=== PATIENT | male | born 1960 | race Caucasian/White ===

== ENCOUNTER → 2022-03-17 09:00 | Outpatient (BNVA) | payer SELFPAY | PROVIDERS: PCP Internal Medicine; Visit Provider Physician Assistant | DX: Z02.79 Encounter for issue of other medical certificate (principal) ==

== ENCOUNTER 2022-05-12 15:56 | Inpatient (IN) | payer OTHER, SELFPAY ==
--- NOTE | ~2022-05-12 | CT_ITS ---
EXAMINATION: CT ABDOMEN AND PELVIS WITHOUT CONTRAST CLINICAL INFORMATION: Abdominal pain, weight loss COMPARISON: 04/07/2013 TECHNIQUE: Multidetector volumetric imaging was performed from the superior aspect of the liver through the pubic symphysis. Sagittal and coronal reformatted images were obtained on the technologist's workstation. This CT examination was performed using dose optimization techniques as appropriate, variously including the following: *Automated exposure control *Adjustment of mA and/or kV according to patient size (this includes techniques or standardized protocols for targeted exams where dose is matched to indication/reason for exam; i.e. extremities or head) *Use of iterative reconstruction technique DLP: 727 mGy-cm FINDINGS: LUNG BASES: The visualized lung bases are unremarkable. LIVER, GALLBLADDER, AND BILIARY TREE: The liver is normal in size, shape, and attenuation. No focal hepatic lesion or biliary ductal dilatation is present. Proximal gallstone is present. PANCREAS: Unremarkable. SPLEEN: Unremarkable. ADRENAL GLANDS: Unremarkable. KIDNEYS AND URETERS: No hydronephrosis or obstructing calculus. A few scattered hypoattenuating lesions are present in the kidneys most consistent with cysts measuring up to 2.7 cm and the left upper pole; no follow-up recommended. A couple small hyperdense right renal lesions favor hemorrhagic or proteinaceous cysts. A few punctate renal calculi are noted bilaterally. Nonspecific bilateral perinephric stranding. BLADDER: Unremarkable. GASTROINTESTINAL TRACT: No evidence of bowel obstruction or significant wall thickening. The appendix is unremarkable. No free fluid or free air is seen. ABDOMINAL WALL: Fat-containing umbilical hernia. Bilateral fat-containing inguinal hernias are also noted. LYMPH NODES: Normal. VASCULAR: Scattered atherosclerotic calcifications are present. PELVIC VISCERA: The prostate gland is enlarged, measuring 5.3 cm in transverse diameter. OSSEOUS STRUCTURES: Mild degenerative endplate changes are present in the spine. CT/CT abdomen pelvis wo con IMPRESSION: No acute findings identified in the abdomen/pelvis. Cholelithiasis.
--- NOTE | ~2022-05-12 | US_ITS ---
EXAMINATION: US ABDOMEN LIMITED CLINICAL INFORMATION: Cholecystitis. COMPARISON: Abdominal ultrasound 01/05/2010. CT scan abdomen pelvis 03/02/2010, 04/07/2013 TECHNIQUE: Real-time imaging of the right upper quadrant abdominal viscera. Code Doppler exam used. FINDINGS: PANCREAS: Obscured by bowel gas. LIVER: Mild diffuse increased echogenicity of liver parenchyma suggesting fatty change. The liver is normal in size. The liver contour is normal. No focal hepatic lesion. There is no intrahepatic biliary duct dilatation seen. GALLBLADDER: Gallstones present in the gallbladder. There is a stent which is intact. Neck measuring about 1.5 cm. Gallbladder wall is slightly thickened measuring 0.4 cm. There is trace pericholecystic fluid. Positive ultrasound Timmons's sign. Findings concerning for acute cholecystitis. HIDA scan may be helpful for further assessment. COMMON BILE DUCT: Normal in caliber measuring 0.6 cm in diameter. RIGHT KIDNEY: There is a nonobstructive 9 mm stone at the midpole. There is no hydronephrosis. The midpole cortex there is a 1.5 cm anechoic cyst, Bosniak 1. At the lower pole cortex there is a 2.1 cm thinly septated cyst, Bosniak 2 cyst. This is stable since ultrasound of 01/05/2010. There is an adjacent 1.5 cm simple cysts, Bosniak 1, at the lower pole. No further follow-up imaging recommended. No solid renal mass. The kidney measures 15.0 cm in maximum dimension. FREE FLUID: None. US/US abdomen limited IMPRESSION: 1. Cholelithiasis. Gallbladder wall thickening and trace pericholecystic fluid with positive ultrasound Timmons's sign raising concern for an acute cholecystitis. HIDA scan may be helpful for further assessment. 2. Increased echogenicity of liver parenchyma consistent with fatty change.
--- NOTE | ~2022-05-12 | NM_ITS ---
BILIARY TRACT IMAGING STUDY CLINICAL INDICATION: Epigastric pain, question acute cholecystitis. PROCEDURE: Scintillation camera images were obtained over the abdomen for an observation of 60 minutes following the intravenous administration of 5 millicuries technetium 99m Mebrofenin. COMPARISON: No previous biliary scan is available for comparison. Abdominal ultrasound dated 05/12/[address] scan of the abdomen and pelvis dated 05/13/2022 are available for comparison.. FINDINGS: There is good concentration of activity in the liver by 5 minutes post injection. Biliary activity is well visualized by 10 minutes, and there is good visualization of small bowel activity by 30 minutes. The gallbladder is well visualized by 25 minutes. Some biliary reflux into the stomach is noted, nonspecific finding. NM/NM hepatobiliary wo pharm IMPRESSION: Normal biliary scan. Visualization of the gallbladder is evidence of a patent cystic duct and strong evidence against the diagnosis of acute cholecystitis. The common bile duct is patent. Liver function appears normal.
[2022-05-12 16:00] VITALS: BP 179/87; PULSE 83; RESP 18; TEMP 37; O2SAT 96; BMI 30.2
--- NOTE | 2022-05-12 16:09 | ECG_ITS ---
Test Reason : cp Blood Pressure : / mmHG Vent. Rate : 086 BPM Atrial Rate : 086 BPM P-R Int : 178 ms QRS Dur : 084 ms QT Int : 366 ms P-R-T Axes : 065 -40 045 degrees QTc Int : 437 ms Normal sinus rhythm Left axis deviation Possible Inferior infarct , age undetermined Abnormal ECG No previous ECGs available Referred By: Generic ED Physician Electronically Signed By:BELLA WITT MD
[2022-05-12 16:30] LABS: Hematocrit 43.1 % (42.0-52.0); Hemoglobin 14.6 g/dl (14.0-18.0); Mean Corpuscular HGB Conc 33.9 g/dl (31.0-36.0); Mean Corpuscular Hemoglobin 29.4 pg (27.0-33.0); Mean Corpuscular Volume 86.7 fL (80.0-98.0); Mean Platelet Volume 11.2 fL (9.4-12.4); Platelet Count 219 X10*3/uL (160-400); Red Blood Count 4.97 X10*6/uL (4.60-5.80); Red Cell Distribution Width 13.2 % (11.0-16.0); White Blood Count 12.7 X10*3/uL (4.8-10.8)
[2022-05-12 16:38] LABS: Anion Gap 15 (12-20); Blood Urea Nitrogen 13 mg/dL (9-16); Calcium 9.7 mg/dL (8.4-10.2); Carbon Dioxide 28 mmol/L (22-29); Chloride 102 mmol/L (96-108); Creatinine Clr Calc Pharmacy 84.8; Estimated Glomerular Filt Rate > 60; Glucose Random 348 mg/dL (60-115); Potassium 4.4 mmol/L (3.3-5.1); Sodium 141 mmol/L (135-145)
[2022-05-12 16:46] LABS: B Type Natriuretic Peptide 21 pg/mL (<100); Troponin-I High Sensitivity < 3.5 ng/L (<3.5-35.0)
--- NOTE | 2022-05-12 22:14 | ED.CHESTPAIN ---
HPI - Chest Pain General Chief Complaint: Chest Pain Stated Complaint: chest and abd pain Time Seen by Provider: 05/12/22 22:04 Source: patient Mode of arrival: ambulatory Limitations: no limitations History of Present Illness HPI narrative: THIS IS A 61 YEARS OLD MALE REFERRED BY THE URGENT CARE BECAUSE OF CHEST PAIN. PATIENT STATES THAT PAIN STARTED ON MONDAY PAIN IS LOCALIZED MORE IN THE EPIGASTRIUM RADIATED TO THE BACK. DENIES ANY FEVER CHILLS. PATIENT HAS HISTORY OF TYPE 2 DIABETES MD complaint: chest pain Onset (ago): day(s) (5) Timing of current episode: constant Prior episodes: No Onset: during rest Pain location: substernal and epigastric Pain radiation: none Quality: aching Relieving factors: nothing Exacerbating factors: nothing Context: recent illness Associated symptoms: nausea Risk Factors Coronary artery disease risk factors: diabetes Related Data Home Medications Medication Instructions Recorded Confirmed aspirin 81 mg tablet 81 mg PO DAILY 05/12/22 05/12/22 atenolol 50 mg tablet 1 tab PO DAILY 05/12/22 05/12/22 atorvastatin 40 mg tablet 1 tab PO DAILY 05/12/22 05/12/22 dulaglutide 1.5 mg/0.5 mL 0.5 ml subcut QWEEK 05/12/22 05/12/22 subcutaneous pen injector (Trulicity) fenofibrate 160 mg tablet 1 tab PO DAILY 05/12/22 05/12/22 glyburide 5 mg tablet 2 tab PO BID 05/12/22 05/12/22 lisinopril 20 mg tablet 1 tab PO DAILY 05/12/22 05/12/22 metformin 1,000 mg tablet 1 tab PO BID 05/12/22 05/12/22 Allergies Allergy/AdvReac Type Severity Reaction Status Date / Time No Known Allergies Allergy Unverified 07/16/20 14:43 Review of Systems Review of Systems: Yes all other systems are reviewed and are negative Constitutional: Constitutional: Reports no additional constitutional complaints Eyes: Eyes: Reports no additional eye complaints Respiratory: Respiratory: Reports no additional respiratory complaints Gastrointestinal: Gastrointestinal: Reports abdominal pain Neurologic: Reports system reviewed and no additional complaints, except as documented [facility] Past Medical History [facility] Narrative: DM Medical History (Updated 05/12/22 @ 23:46 by Nghia Valente MD) Diabetes HLD (hyperlipidemia) HTN (hypertension) Social History Social History Advance Directives: No Advance Directives Information Provided: No Physical Exam Vital Signs: Vital Signs: Last Vital Signs Temp 98.6 F 05/12/22 16:00 Pulse 74 05/12/22 23:29 Resp 15 05/12/22 23:29 BP 137/75 05/12/22 23:29 Pulse Ox 97 05/12/22 23:29 O2 Del Method 05/12/22 23:29 BMI result Body Mass Index 30.2 Const: General: cooperative Nutritional Appearance: well nourished Orientation/consciousness: patient oriented x3 Limitations: no limitations HEENT: Head: Yes normal to inspection and Yes No palpable skull fracture present General nose exam: Normal external nose present Face and sinus: Yes normal facial exam Mouth: Normal oral and palatal mucosa present Neck: Neck: Yes full ROM and Yes no lymphadenopathy Chest: Chest palpation & inspection: normal inspection of the chest Resp: Effort & Inspection: normal respiratory effort Auscultation: clear to auscultation bilaterally Cardio: Jugular venous distension: no JVD Rate: regular rate Rhythm: regular rhythm GI: Inspection: Yes normal to inspection Palpation (GI): Soft to palpation Percussion: Yes normal to percussion Skin: General skin exam: no rashes or lesions noted, elasticity normal and turgor normal Neuro: General: patient oriented x3 Course Reevaluation(s) Reevaluation #1: I spoke with surgery Dr Irizarry he reccomend admission to medicine because elevated lipase (gallstones pancreatitis) Time: 23:57 Reevaluation #2: Feeling better Time: 23:58 MDM - Chest Pain Lab Data Result diagrams: 05/12/22 16:12 05/12/22 16:12 Labs: Lab Results 05/12/22 05/12/22 05/12/22 Range/Units 16:12 16:12 16:12 WBC 12.7 H (4.8-10.8) X10*3/uL RBC 4.97 (4.60-5.80) X10*6/uL Hgb 14.6 (14.0-18.0) g/dl Hct 43.1 (42.0-52.0) % MCV 86.7 (80.0-98.0) fL MCH 29.4 (27.0-33.0) pg MCHC 33.9 (31.0-36.0) g/dl RDW 13.2 (11.0-16.0) % Plt Count 219 (160-400) X10*3/uL MPV 11.2 (9.4-12.4) fL Absolute Nucleated RBC 0.000 (0.0-0.012) X10*3/uL Nucleated RBC % (auto) 0.0 (0.0-0.2) /100WBC Sodium 141 (135-145) mmol/L Potassium 4.4 (3.3-5.1) mmol/L Chloride 102 (96-108) mmol/L Carbon Dioxide 28 (22-29) mmol/L Anion Gap 15 (12-20) BUN 13 (9-16) mg/dL Creatinine 1.03 (0.5-1.4) mg/dL Estim Creat Clear Calc 84.8 Estimated GFR > 60 POC Glucose (60-115) mg/dL Random Glucose 348 H (60-115) mg/dL Calcium 9.7 (8.4-10.2) mg/dL Total Bilirubin 1.2 H (0.0-1.0) mg/dL Direct Bilirubin 0.5 (0.0-0.5) mg/dL AST 12 (5-37) U/L ALT 14 (0-40) U/L Alkaline Phosphatase 61 (39-117) U/L Troponin I High Sens < 3.5 (<3.5-35.0) ng/L B-Natriuretic Peptide 21 (<100) pg/mL Total Protein 6.6 (6.5-8.0) g/dL Albumin 4.4 (3.5-5.0) g/dL Lipase (8-78) U/L 05/12/22 05/12/22 05/12/22 Range/Units 22:31 22:31 22:33 WBC (4.8-10.8) X10*3/uL RBC (4.60-5.80) X10*6/uL Hgb (14.0-18.0) g/dl Hct (42.0-52.0) % MCV (80.0-98.0) fL MCH (27.0-33.0) pg MCHC (31.0-36.0) g/dl RDW (11.0-16.0) % Plt Count (160-400) X10*3/uL MPV (9.4-12.4) fL Absolute Nucleated RBC (0.0-0.012) X10*3/uL Nucleated RBC % (auto) (0.0-0.2) /100WBC Sodium (135-145) mmol/L Potassium (3.3-5.1) mmol/L Chloride (96-108) mmol/L Carbon Dioxide (22-29) mmol/L Anion Gap (12-20) BUN (9-16) mg/dL Creatinine (0.5-1.4) mg/dL Estim Creat Clear Calc Estimated GFR POC Glucose 336 H (60-115) mg/dL Random Glucose (60-115) mg/dL Calcium (8.4-10.2) mg/dL Total Bilirubin (0.0-1.0) mg/dL Direct Bilirubin (0.0-0.5) mg/dL AST (5-37) U/L ALT (0-40) U/L Alkaline Phosphatase (39-117) U/L Troponin I High Sens < 3.5 (<3.5-35.0) ng/L B-Natriuretic Peptide (<100) pg/mL Total Protein (6.5-8.0) g/dL Albumin (3.5-5.0) g/dL Lipase 287 H (8-78) U/L ECG Data ECG #1: Pacemaker model: EKG SHOWS NORMAL SINUS RHYTHM RATE [address]-T CHANGES Discharge Plan Discharge Clinical Impression: Gallstones, Acute gallstone pancreatitis Patient Disposition: Admitted As Inpatient
[2022-05-12 22:37] LABS: Glucose, Whole Blood 336 mg/dL (60-115)
[2022-05-12] MEDS: Ketorolac Tromethamine 30 MG/ML VIAL IVPUSH (22:43)
[2022-05-12 22:53] LABS: Lipase 287 U/L (8-78)
[2022-05-12 22:56] LABS: Troponin-I High Sensitivity < 3.5 ng/L (<3.5-35.0)
[2022-05-12 23:25] VITALS: RESP 15
[2022-05-12] MEDS: HYDROmorphone HCl 0.5 MG/0.5 ML SYRINGE IVPUSH (23:25)
[2022-05-12 23:29] VITALS: BP 137/75; PULSE 74; PULSE 79; RESP 15; O2SAT 97
[2022-05-12] MEDS: 0.9 % Sodium Chloride 1,000 ML 999 ML IVCONT (23:36)
[2022-05-12] MEDS: Piperacillin Sodium/Tazobactam 3.375 GM in 0.9 % Sodium Chloride 50 ML IV (23:43)
[2022-05-12 23:53] LABS: Alanine Aminotransferase 14 U/L (0-40); Albumin Level 4.4 g/dL (3.5-5.0); Alkaline Phosphatase 61 U/L (39-117); Aspartate Amino Transferase 12 U/L (5-37); Bilirubin Direct 0.5 mg/dL (0.0-0.5); Bilirubin Total 1.2 mg/dL (0.0-1.0); Total Protein 6.6 g/dL (6.5-8.0)
[2022-05-13] VITALS (8 sets, daily range): BP systolic 117–162; BP diastolic 55–74; PULSE 60–69; RESP 10–18; TEMP 36.1–37.1; O2SAT 95–99
--- NOTE | 2022-05-13 01:05 | P.HPHOSP_ITS ---
History of Present Illness Date of Service: 05/13/22 Chief Complaint: abd pain/chest pain 61-year-old male with past medical history of hyperlipidemia, diabetes, hypertension presents to the hospital with for substernal/epigastric abdominal pain. Patient reports his symptoms started 1 week ago, the pain is constant, radiating to the back, varying in severity, reaching 10/10 at times, resolving spontaneously, he reports that the pain with come in waves. He almost feels like a squeezing right upper quadrant pain at times as well. He reports unintentional 40 lb weight loss in 4 months. He has nausea with no vomiting, has had diarrhea because he has been taking milk of magnesia thinking that would help. He has had low oral intake as a result. Denies any fever or chills, no palpitation, headache, no numbness weakness or tingling. No urinary symptoms and no lower extremity edema. Patient reports that he had a colonoscopy about a year ago that showed adenoma any was told that that was falling into pea, skipping 5 year. On arrival to the ED hemodynamically stable with no significant abnormal vitals Labs are significant for WBC count 12.7, lipase of 287, LFTs normal. Abdominal ultrasound showed cholelithiasis, abdominal pelvic CT showed cholelithiasis with no evidence of acute pancreatitis Given that patient needs to have a criteria for acute pancreatitis he will be admitted for further management Review of Systems Review of Systems: Yes all other systems are reviewed and are negative FOR[facility], [facility] Medical History Diabetes HLD (hyperlipidemia) HTN (hypertension) Family History (Updated 05/13/22 @ 06:42 by Ciaran Hinton MD) Mother Lung cancer Father Colon cancer Pertinent family history: Father had colon cancer at the age of 80 Social History Advance Directives: No Advance Directives Information Provided: No Meds Allergies Allergy/AdvReac Type Severity Reaction Status Date / Time No Known Allergies Allergy Unverified 07/16/20 14:43 Active Medications: Current Medications Acetaminophen (Acetaminophen 325 Mg Tablet) 650 mg PO Q6H PRN PRN Reason: Pain, Mild (Pain Scale 1-3) Hydromorphone HCl (Hydromorphone Hcl 1 Mg/Ml Syringe) 0.5 mg IVPUSH Q4H PRN; Pr otocol PRN Reason: Pain, Severe (Pain Scale 7-10) Ondansetron HCl (Ondansetron Hcl 4 Mg/2 Ml Vial) 4 mg IVPUSH Q8H PRN PRN Reason: Nausea and Vomiting Sodium Chloride (0.9 % Sodium Chloride Flush 3 Ml Syringe) 3 ml IVFLUSH [facility] Home Medications Medication Instructions Recorded Confirmed Last Taken Type aspirin 81 mg tablet 81 mg PO DAILY 05/12/22 05/12/22 Unknown History atenolol 50 mg tablet 1 tab PO DAILY 05/12/22 05/12/22 Unknown History atorvastatin 40 mg tablet 1 tab PO DAILY 05/12/22 05/12/22 Unknown History dulaglutide 1.5 mg/0.5 mL 0.5 ml subcut QWEEK 05/12/22 05/12/22 Unknown History subcutaneous pen injector (Trulicity) fenofibrate 160 mg tablet 1 tab PO DAILY 05/12/22 05/12/22 Unknown History glyburide 5 mg tablet 2 tab PO BID 05/12/22 05/12/22 Unknown History lisinopril 20 mg tablet 1 tab PO DAILY 05/12/22 05/12/22 Unknown History metformin 1,000 mg tablet 1 tab PO BID 05/12/22 05/12/22 Unknown History Physical Exam Vital Signs and Narrative: Vital Signs: Last Vital Signs Temp 98.6 F 05/12/22 16:00 Pulse 69 05/13/22 00:42 Resp 16 05/13/22 00:42 BP 137/75 05/12/22 23:29 Pulse Ox 96 05/13/22 00:42 O2 Del Method 05/13/22 00:42 BMI result Body Mass Index 30.2 Const: General: cooperative and no acute distress Orientation/consciousness: patient oriented x3 Eyes: General: appearance normal, both eyes and all related structures Resp: Effort & Inspection: normal respiratory effort Auscultation: clear to auscultation bilaterally Cardio: Rate: regular rate Rhythm: regular rhythm GI: Other: Epigastric tenderness, no rebound or guarding Palpation (GI): Soft to palpation Auscultation: normal bowel sounds Skin: General skin exam: no rashes or lesions noted Neuro: General: patient oriented x3 Cognition (Neuro): normal cognition Extrem: General: Yes normal to inspection and Yes no pedal edema Results Labs CBC and Chem 7: 05/12/22 16:12 05/12/22 16:12 Labs: Laboratory Results - last 24 hr 05/12/22 05/12/22 05/12/22 16:12 16:12 16:12 MCV 86.7 MCH 29.4 MCHC 33.9 RDW 13.2 Plt Count 219 MPV 11.2 Absolute Nucleated RBC 0.000 Nucleated RBC % (auto) 0.0 Anion Gap 15 Estim Creat Clear Calc 84.8 Estimated GFR > 60 POC Glucose Random Glucose 348 H Calcium 9.7 Total Bilirubin 1.2 H Direct Bilirubin 0.5 AST 12 ALT 14 Alkaline Phosphatase 61 Troponin I High Sens < 3.5 B-Natriuretic Peptide 21 Total Protein 6.6 Albumin 4.4 Lipase 05/12/22 05/12/22 05/12/22 22:31 22:31 22:33 MCV MCH MCHC RDW Plt Count MPV Absolute Nucleated RBC Nucleated RBC % (auto) Anion Gap Estim Creat Clear Calc Estimated GFR POC Glucose 336 H Random Glucose Calcium Total Bilirubin Direct Bilirubin AST ALT Alkaline Phosphatase Troponin I High Sens < 3.5 B-Natriuretic Peptide Total Protein Albumin Lipase 287 H Imaging Radiologist's Impressions: Impressions Abdomen Ultrasound 05/12/22 22:55 IMPRESSION: 1. Cholelithiasis. Gallbladder wall thickening and trace pericholecystic fluid with positive ultrasound Timmons's sign raising concern for an acute cholecystitis. HIDA scan may be helpful for further assessment. 2. Increased echogenicity of liver parenchyma consistent with fatty change. Assessment and Plan (1) Gallstones: Status: Acute (2) Acute gallstone pancreatitis: Status: Acute (3) Weight loss: Status: Acute Plan This is a 61-year-old male with past medical history of hypertension, hyperlipidemia, as well as diabetes presents to the hospital with abdominal pain # Epigastric abdominal pain - likely secondary to acute pancreatitis - patient has elevated lipase as well as epigastric pain radiating to the back characteristic of acute pancreatitis meeting 2/3 criteria for acute pancreatitis - likely cause gallstone pancreatitis - will consult GI for possible MRCP - IV fluids - pain control # significant weight loss - reports a 40 lb weight loss that was unintentional for the past 4 months - no evidence of acute abnormality on abdominal CT - reports colonoscopy about a year ago with adenoma and 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
[2022-05-13] MEDS: Lactated Ringers 1,000 ML 200 ML IVCONT ×5 (01:55→22:02)
[2022-05-13 04:28] LABS: COVID-19 Test Negative (Negative)
[2022-05-13 06:46] LABS: MANUAL DIFF FLAG NO
[2022-05-13 06:50] LABS: Basophils Percent Auto 0.4 % (0-2); Eosinophils Absolute Auto 0.4 X10*3/uL (0.0-0.4); Eosinophils Percent Auto 4.6 % (0-4); Hematocrit 39.2 % (42.0-52.0); Hemoglobin 13.2 g/dl (14.0-18.0); Imm Gran Abs Auto 0.07 X10*3/uL (0.00-0.03); Imm Gran Pct Auto 0.8 % (0.0-0.4); Lymphocytes Absolute Auto 2.4 X10*3/uL (1.2-4.9); Lymphocytes Percent Auto 26.7 % (20-40); Mean Corpuscular HGB Conc 33.7 g/dl (31.0-36.0); Mean Corpuscular Hemoglobin 29.5 pg (27.0-33.0); Mean Corpuscular Volume 87.7 fL (80.0-98.0); Mean Platelet Volume 11.3 fL (9.4-12.4); Monocytes Absolute Auto 0.7 X10*3/uL (0.1-1.2); Monocytes Percent Auto 7.4 % (2-11); Neutrophils Absolute Auto 5.4 x10*3/uL (2.0-8.3); Neutrophils Percent Auto 60.1 % (45-73); Platelet Count 173 X10*3/uL (160-400); Red Blood Count 4.47 X10*6/uL (4.60-5.80); Red Cell Distribution Width 13.3 % (11.0-16.0)
[2022-05-13 07:25] LABS: Anion Gap 9 (12-20); Blood Urea Nitrogen 12 mg/dL (9-16); Calcium 8.8 mg/dL (8.4-10.2); Carbon Dioxide 32 mmol/L (22-29); Chloride 107 mmol/L (96-108); Creatinine Clr Calc Pharmacy 106.5; Estimated Glomerular Filt Rate > 60; Glucose Random 228 mg/dL (60-115); Potassium 4.2 mmol/L (3.3-5.1); Sodium 144 mmol/L (135-145); Triglycerides 113 mg/dL
--- NOTE | 2022-05-13 07:25 | PM.GICN ---
History of Present Illness Data of Consult Service Date: 05/13/22 Requesting physician: Ciaran Hinton Primary Care Provider: Unknown Physician HPI Reason for consult: pancreatitis 61-year-old male with past medical history of hyperlipidemia, diabetes, hypertension who I am seeing for assessment of pancreatitis He initially presented with constant 10/10 epigastrc pain with radiaiton into the back for last 1-2 days, coming in waves of varying intensity. No relieving or exacerbating factors, never had before, associated with nausea, no vomiting. Denies any fever or chills, no palpitation, headache, no numbness weakness or tingling.? No urinary symptoms and no lower extremity edema.? He reports unintentional 40 lb weight loss in 4 months but blames this on matrimonial issues with and not eating right. He does have early satiety. Labs are significant for WBC count 12.7, lipase of 287, LFTs normal.? Abdominal ultrasound showed cholelithiasis, abdominal pelvic CT showed cholelithiasis with no evidence of acute pancreatitis Review of Systems Review of Systems: Constitutional : No Weight loss, No Fever, No Chills ENT/Mouth : No sore throat, No Rhinorrhea Eyes: No Swelling, No Redness Cardiovascular : No Chest Pain, No SOB, No Edema Respiratory : No Cough, No Sputum, No Wheezing Gastrointestinal : see HPI Genitourinary : NO Dysuria, No Urinary Frequency, No Hematuria, No Urgency Musculoskeletal : No joint pain, No Myalgias, No Joint Swelling Skin : No Skin Lesions, No rash Neuro : No Weakness, No Numbness, No Dizziness, No Headache Psych : No Anxiety/Panic, No Depression Heme/Lymph: No Bruising, No Lymphadenopathy Endocrine : No Polyuria, No Polydipsia All other systems reviewed and are negative. [facility] Past Medical History Medical History Diabetes HLD (hyperlipidemia) HTN (hypertension) Family History Family History (Updated 05/13/22 @ 06:42 by Ciaran Hinton MD) Mother Lung cancer Father Colon cancer Social History Social History Advance Directives: No Advance Directives Information Provided: No Meds Allergies Allergy/AdvReac Type Severity Reaction Status Date / Time No Known Allergies Allergy Unverified 07/16/20 14:43 Active Medications: Current Medications Acetaminophen (Acetaminophen 325 Mg Tablet) 650 mg PO Q6H PRN PRN Reason: Pain, Mild (Pain Scale 1-3) Atenolol (Atenolol 50 Mg Tablet) 50 mg PO DAILY [facility]; Protocol Atorvastatin Calcium (Atorvastatin Calcium 40 Mg Tablet) 40 mg PO DAILY [facility] Dextrose (Dextrose 50 % 25 Gm/50 Ml Syringe) 25 gm IVPUSH Q15M PRN; Protocol PRN Reason: per Hypoglycemia Standing Ord. Fenofibrate (Fenofibrate 160 Mg Tablet) 160 mg PO DAILY [facility] Glucose (Glucose Gel 15 Gm Gel..Gram.) 15 gm PO Q15M PRN; Protocol PRN Reason: per Hypoglycemia Standing Ord. Glyburide (Glyburide 5 Mg Tablet) 10 mg PO BID [facility] Hydromorphone HCl (Hydromorphone Hcl 1 Mg/Ml Syringe) 0.5 mg IVPUSH Q4H PRN; Protocol PRN Reason: Pain, Severe (Pain Scale 7-10) Lactated Ringer's (Lr) 1,000 mls @ 200 mls/hr IVCONT .Q5H [facility] Last Admin: 05/13/22 06:52 Dose: 200 mls/hr Insulin Human Lispro (Insulin Lispro 100 Unit/Ml 3 Ml Vial) 0.1 - 10 unit SUBCUT QIDACHS [facility]; Protocol Lisinopril (Lisinopril 20 Mg Tablet) 20 mg PO DAILY [facility]; Protocol Ondansetron HCl (Ondansetron Hcl 4 Mg/2 Ml Vial) 4 mg IVPUSH Q8H PRN PRN Reason: Nausea and Vomiting Sodium Chloride (0.9 % Sodium Chloride Flush 3 Ml Syringe) 3 ml IVFLUSH QSHIFT [facility] Home Medications Medication Instructions Recorded Confirmed Last Taken Type aspirin 81 mg tablet 81 mg PO DAILY 05/12/22 05/12/22 Unknown History atenolol 50 mg tablet 1 tab PO DAILY 05/12/22 05/12/22 Unknown History atorvastatin 40 mg tablet 1 tab PO DAILY 05/12/22 05/12/22 Unknown History dulaglutide 1.5 mg/0.5 mL 0.5 ml subcut QWEEK 05/12/22 05/12/22 Unknown History [facility] fenofibrate 160 mg tablet 1 tab PO DAILY 05/12/22 05/12/22 Unknown History glyburide 5 mg tablet 2 tab PO BID 05/12/22 05/12/22 Unknown History lisinopril 20 mg tablet 1 tab PO DAILY 05/12/22 05/12/22 Unknown History metformin 1,000 mg tablet 1 tab PO BID 05/12/22 05/12/22 Unknown History Physical Exam Vital Signs: Vital Signs: Last Vital Signs Temp 97.6 F 05/13/22 07:20 Pulse 63 05/13/22 07:20 Resp 15 05/13/22 07:20 BP 162/70 H 05/13/22 07:20 Pulse Ox 98 05/13/22 07:20 O2 Del Method 05/13/22 07:20 BMI result Body Mass Index 30.2 EXAM: GENERAL: The patient is obese VITAL SIGNS:see workflow HEENT: Nonicteric sclerae, PERRLA, EOMI. Oropharynx clear. Moist mucous membranes. Conjunctivae appear well perfused. No thyroid mass. CHEST: Chest wall is nontender. HEART: Regular rate and rhythm without murmurs. LUNGS: Clear to auscultation bilaterally. ABDOMEN: Soft, positive bowel sounds, tender epigastrium and RUQ, no organomegaly.no flank tenderness, moderate sized umbilical hernia noted SKIN: No rash, no excessive bruising, petechiae, or purpura. NEUROLOGIC: Cranial nerves II-XII intact without motor/sensory deficit. Psych> nml affect Extrem: General: Yes normal to inspection Results Labs CBC & Chem 7: 05/13/22 06:20 05/13/22 06:20 Labs: Short CBC 05/12/22 05/13/22 Range/Units 16:12 06:20 WBC 12.7 H 9.0 (4.8-10.8) X10*3/uL Hgb 14.6 13.2 L (14.0-18.0) g/dl Hct 43.1 39.2 L (42.0-52.0) % Plt Count 219 173 (160-400) X10*3/uL BMP 05/12/22 05/13/22 16:12 06:20 Sodium 141 144 Potassium 4.4 4.2 Chloride 102 107 Carbon Dioxide 28 32 H BUN 13 12 Creatinine 1.03 0.82 Calcium 9.7 8.8 D Liver Function 07/14/22 Range/Units 16:12 Total Bilirubin 1.2 H (0.0-1.0) mg/dL Direct Bilirubin 0.5 (0.0-0.5) mg/dL AST 12 (5-37) U/L ALT 14 (0-40) U/L Alkaline Phosphatase 61 (39-117) U/L Albumin 4.4 (3.5-5.0) g/dL Imaging US - abdomen: Radiologist's impression: . Cholelithiasis. Gallbladder wall thickening and trace pericholecystic fluid with positive ultrasound Timmons's sign raising concern for an acute cholecystitis. HIDA scan may be helpful for further assessment. 2. Increased echogenicity of liver parenchyma consistent with fatty change. CT scan - abdomen: Attestation: I personally reviewed and interpreted this imaging study as follows: My impression: large gallstone impacted near neck of GB, mild atheromatous disease of blood vessels, renal cysts Assessment and Plan (1) Gallstones: Status: Acute (2) Acute gallstone pancreatitis: Status: Acute Plan 1/Abdominal pain with raised lipase and gallstones on imaging may have had mild pancreatitis, also possible early stage cholecystitis, no evidence of CBD obstruction 2/ weight loss, may be due to underlying marital stress, no concerning findings on CT, he had colonoscopy in recent past few years without any mass etc, does have early satiety though, may also be due to 1/ above PLAN: 1/ consider HIDA if ongoing concern for cholecystitis or if worsening sx and commence ABx 2/ if symptoms improve then can allow clears and advance diet 3/ surgical assessment 4/ may consider o/p EGD due to early satiety, may have gastroparesis from DM, or due to stress, check TSH 5/ if sx persist then MRI pancreas Procedures Date of Service Date of Service: 05/13/22
[2022-05-13 07:31] LABS: Estimated Average Glucose 166 mg/dL; Hemoglobin A1c % 7.4 %
--- NOTE | 2022-05-13 07:40 | PHA.MEDREC ---
Pharmacy Consult ? Medication Reconciliation Pharmacy has completed the medication reconciliation. Reviewed med rec nurse completed
--- NOTE | 2022-05-13 07:57 | PC.NURSE ---
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
[2022-05-13] MEDS: atenoloL 50 MG TABLET PO (08:01)
[2022-05-13] MEDS: HYDROmorphone HCl 1 MG/ML SYRINGE 0.5 MG IVPUSH ×3 (08:01→17:35)
[2022-05-13] MEDS: Atorvastatin Calcium 40 MG TABLET PO (08:02)
[2022-05-13] MEDS: lisinopriL 20 MG TABLET PO (08:02)
[2022-05-13 08:06] LABS: Glucose, Whole Blood 204 mg/dL (60-115)
--- NOTE | 2022-05-13 08:24 | P.CONGS_ITS ---
History of Present Illness Consult details Consult date: 05/13/22 Reason for consult: abdominal pain Requesting physician: Nghia Valente Narrative: A 61-year-old gentleman with a history of type 2 diabetes. He reports his last hemoglobin A1c was in the 7 range a couple months ago. He seen at the request of the emergency room team because of abdominal pain that is been going on for about a week. He denies any history of smoking or alcohol use but notes that he has had band-like upper abdominal pain for at least a week. It has been associated with both nausea and vomiting but no chest pain, difficulty breathing or shortness of breath. 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 He denies any new medication changes. He is noted to have a gallstone, leukocytosis and hyperlipasemia and I was asked to evaluate him for possible gallstone pancreatitis or acute cholecystitis given the conflicting data on the ultrasound, which shows gallbladder wall thickening and right upper quadrant tenderness and CT scan which showed no significant pathology. Patient notes he has little improved this morning. Review of Systems Review of Systems: Yes all other systems are reviewed and are negative Constitutional: Constitutional: Reports as per [facility] Past Medical History Medical History Diabetes HLD (hyperlipidemia) HTN (hypertension) Family History Family History (Updated 05/13/22 @ 06:42 by Ciaran Hinton MD) Mother Lung cancer Father Colon cancer Social History Social History Advance Directives: No Advance Directives Information Provided: No Meds Allergies Allergy/AdvReac Type Severity Reaction Status Date / Time No Known Allergies Allergy Unverified 07/16/20 14:43 Active Medications: Current Medications Acetaminophen (Acetaminophen 325 Mg Tablet) 650 mg PO Q6H PRN PRN Reason: Pain, Mild (Pain Scale 1-3) Atenolol (Atenolol 50 Mg Tablet) 50 mg PO DAILY [facility]; Protocol Last Admin: 05/13/22 08:01 Dose: 50 mg Atorvastatin Calcium (Atorvastatin Calcium 40 Mg Tablet) 40 mg PO DAILY [facility] Last Admin: 05/13/22 08:02 Dose: 40 mg Dextrose (Dextrose 50 % 25 Gm/50 Ml Syringe) 25 gm IVPUSH Q15M PRN; Protocol PRN Reason: per Hypoglycemia Standing Ord. Fenofibrate (Fenofibrate 160 Mg Tablet) 160 mg PO DAILY [facility] Glucose (Glucose Gel 15 Gm Gel..Gram.) 15 gm PO Q15M PRN; Protocol PRN Reason: per Hypoglycemia Standing Ord. Glyburide (Glyburide 5 Mg Tablet) 10 mg PO BID [facility] Hydromorphone HCl (Hydromorphone Hcl 1 Mg/Ml Syringe) 0.5 mg IVPUSH Q4H PRN; Protocol PRN Reason: Pain, Severe (Pain Scale 7-10) Last Admin: 05/13/22 08:01 Dose: 0.5 mg Lactated Ringer's (Lr) 1,000 mls @ 200 mls/hr IVCONT .Q5H [facility] Last Admin: 05/13/22 06:52 Dose: 200 mls/hr Insulin Human Lispro (Insulin Lispro 100 Unit/Ml 3 Ml Vial) 0.1 - 10 unit SUBCUT QIDACHS [facility]; Protocol Last Admin: 05/13/22 07:44 Dose: Not Given Lisinopril (Lisinopril 20 Mg Tablet) 20 mg PO DAILY [facility]; Protocol Last Admin: 05/13/22 08:02 Dose: 20 mg Ondansetron HCl (Ondansetron Hcl 4 Mg/2 Ml Vial) 4 mg IVPUSH Q8H PRN PRN Reason: Nausea and Vomiting Sodium Chloride (0.9 % Sodium Chloride Flush 3 Ml Syringe) 3 ml IVFLUSH QSHIFT [facility] Last Admin: 05/13/22 08:24 Dose: Not Given Home Medications Medication Instructions Recorded Confirmed Last Taken Type aspirin 81 mg tablet 81 mg PO DAILY 05/12/22 05/12/22 Unknown History atenolol 50 mg tablet 1 tab PO DAILY 05/12/22 05/12/22 Unknown History atorvastatin 40 mg tablet 1 tab PO DAILY 05/12/22 05/12/22 Unknown History dulaglutide 1.5 mg/0.5 mL 0.5 ml subcut QWEEK 05/12/22 05/12/22 Unknown History subcutaneous pen injector ([facility]) fenofibrate 160 mg tablet 1 tab PO DAILY 05/12/22 05/12/22 Unknown History glyburide 5 mg tablet 2 tab PO BID 05/12/22 05/12/22 Unknown History lisinopril 20 mg tablet 1 tab PO DAILY 05/12/22 05/12/22 Unknown History metformin 1,000 mg tablet 1 tab PO BID 05/12/22 05/12/22 Unknown History Physical Exam Vital Signs: Vital Signs: Last Vital Signs Temp 97.6 F 05/13/22 07:20 Pulse 63 05/13/22 07:20 Resp 15 05/13/22 07:20 BP 162/70 H 05/13/22 07:20 Pulse Ox 98 05/13/22 07:20 O2 Del Method 05/13/22 07:20 BMI result Body Mass Index 30.2 The patient is non-toxic & in good spirits NC/AT, PERRLA, EOMI Mood, affect & judgment all appear appropriate Sclera anicteric conjunctiva pink and moist Oropharynx is clear with no aphthous ulcers, Mallampati class 4, mucous membr anes moist Neck is supple with no masses, adenopathy or bruits Thyroid is nontender and free of dominant masses Heart is regular, normal S1-S2 no rubs or murmurs Lungs are clear and equal anteriorly with no audible wheezing, rubs or dullness to percussion No CVA tenderness present Abdomen is obese with a MODERATE REDUCIBLE, NONTENDER UMBILICAL HERNIA. The skin overlying the hernia is thinned. There is minimal epigastric and right upper quadrant discomfort but no rebound, rigidity, guarding, bruits. Rectal exam is deferred Skin has good turgor and is free of rashes Extremities free of cyanosis clubbing edema Results Labs Result diagrams: 05/13/22 06:20 05/13/22 06:20 Labs: Abnormal lab results 05/12/22 05/12/22 05/12/22 Range/Units 16:12 16:12 22:31 WBC 12.7 H (4.8-10.8) X10*3/uL RBC (4.60-5.80) X10*6/uL Hgb (14.0-18.0) g/dl Hct (42.0-52.0) % Immature Gran % (Auto) (0.0-0.4) % Eos % (Auto) (0-4) % Abs Immat Gran (auto) (0.00-0.03) X10*3/uL Carbon Dioxide (22-29) mmol/L Anion Gap (12-20) POC Glucose (60-115) mg/dL Random Glucose 348 H (60-115) mg/dL Total Bilirubin 1.2 H (0.0-1.0) mg/dL Lipase 287 H (8-78) U/L 05/12/22 05/13/22 05/13/22 Range/Units 22:33 06:20 06:20 WBC (4.8-10.8) X10*3/uL RBC 4.47 L (4.60-5.80) X10*6/uL Hgb 13.2 L (14.0-18.0) g/dl Hct 39.2 L (42.0-52.0) % Immature Gran % (Auto) 0.8 H (0.0-0.4) % Eos % (Auto) 4.6 H (0-4) % Abs Immat Gran (auto) 0.07 H (0.00-0.03) X10*3/uL Carbon Dioxide 32 H (22-29) mmol/L Anion Gap 9 L (12-20) POC Glucose 336 H (60-115) mg/dL Random Glucose 228 H (60-115) mg/dL Total Bilirubin (0.0-1.0) mg/dL Lipase (8-78) U/L 05/13/22 Range/Units 07:19 WBC (4.8-10.8) X10*3/uL RBC (4.60-5.80) X10*6/uL Hgb (14.0-18.0) g/dl Hct (42.0-52.0) % Immature Gran % (Auto) (0.0-0.4) % Eos % (Auto) (0-4) % Abs Immat Gran (auto) (0.00-0.03) X10*3/uL Carbon Dioxide (22-29) mmol/L Anion Gap (12-20) POC Glucose 204 H (60-115) mg/dL Random Glucose (60-115) mg/dL Total Bilirubin (0.0-1.0) mg/dL Lipase (8-78) U/L Short CBC 05/12/22 05/13/22 Range/Units 16:12 06:20 WBC 12.7 H 9.0 (4.8-10.8) X10*3/uL Hgb 14.6 13.2 L (14.0-18.0) g/dl Hct 43.1 39.2 L (42.0-52.0) % Plt Count 219 173 (160-400) X10*3/uL BMP 05/12/22 05/13/22 16:12 06:20 Sodium 141 144 Potassium 4.4 4.2 Chloride 102 107 Carbon Dioxide 28 32 H BUN 13 12 Creatinine 1.03 0.82 Calcium 9.7 8.8 D Liver Function 05/12/22 Range/Units 16:12 Total Bilirubin 1.2 H (0.0-1.0) mg/dL Direct Bilirubin 0.5 (0.0-0.5) mg/dL AST 12 (5-37) U/L ALT 14 (0-40) U/L Alkaline Phosphatase 61 (39-117) U/L Albumin 4.4 (3.5-5.0) g/dL All other labs normal. Imaging Chest x-ray: report reviewed Abdomen CT scan report/results: report reviewed and image reviewed CT scan - pelvis: report reviewed and image reviewed Abdominal ultrasound report/results: report reviewed and image reviewed Additional studies: I have ordered a HIDA scan to be done this morning. Addendum 12:52PM-- no evidence of acute cholecystitis on HIDA scan Assessment and Plan (1) Gallstones: Status: Acute (2) Acute gallstone pancreatitis: Status: Acute (3) Morbid (severe) obesity due to excess calories: Status: Acute (4) DMII (diabetes mellitus, type 2): Status: Acute Plan I have ordered a HIDA scan, and that is negative for acute cholecystitis. It is possible the patient had a small gallstones spit, however, he is currently improving. The patient is clinically improved and his symptoms do sound like biliary colic, but that would not explain is hyperlipasemia. Trend lipase. The patient's umbilical hernia readily reduces and is quiescent, however there are trophic skin changes. He should consider repair on an elective later visit. Please call me with any questions. I will continue to follow. I would not object to clear liquids with a planned discharge him and follow up as an outpatient unless another etiology for his pancreatitis is concerning. Procedures Date of Service Date of Service: 05/13/22
[2022-05-13] MEDS: glyBURIDE 5 MG TABLET 10 MG PO ×2 (08:51→21:59)
[2022-05-13] MEDS: Fenofibrate 160 MG TABLET PO (08:51)
--- NOTE | 2022-05-13 09:39 | P.CONGS_ITS ---
History of Present Illness Consult details Consult date: 05/13/22 Narrative: 61M admitted for epigastric pain. He describes pain on the epigastric area, right upper quadrant as well as the substernal area for over 1 week now. He describes this as episodic, and would sometimes be severe. He says this has not changed much over the week. He denies anusea or vomitting. He denies fever or chills at home He also says that has had significant weight loss almost 40 lbs in 4-5 months. Review of Systems Constitutional: Constitutional: Denies chills and Denies fever(s) Cardiovascular: Cardiovascular: Denies chest pain, Denies dyspnea and Denies dyspnea on exertion Respiratory: Respiratory: Denies cough, Denies dyspnea and Denies dyspnea on exertion Gastrointestinal: Gastrointestinal: Denies hematochezia and Denies change in bowel habits Genitourinary: Genitourinary: Denies hematuria and Denies difficulty urinating Musculoskeletal: Musculoskeletal: Denies back pain and Denies limited range of motion Neurologic: Denies focal weakness and Denies convulsions Psychiatric: Psychiatric: Denies depression and Denies mood swings [facility] Past Medical History Medical History Diabetes HLD (hyperlipidemia) HTN (hypertension) Family History Family History (Updated 05/13/22 @ 06:42 by Ciaran Hinton MD) Mother Lung cancer Father Colon cancer Social History Social History Advance Directives: No Advance Directives Information Provided: No Meds Allergies Allergy/AdvReac Type Severity Reaction Status Date / Time No Known Allergies Allergy Unverified 07/16/20 14:43 Active Medications: Current Medications Acetaminophen (Acetaminophen 325 Mg Tablet) 650 mg PO Q6H PRN PRN Reason: Pain, Mild (Pain Scale 1-3) Atenolol (Atenolol 50 Mg Tablet) 50 mg PO DAILY NATALIA; Protocol Last Admin: 05/13/22 08:01 Dose: 50 mg Atorvastatin Calcium (Atorvastatin Calcium 40 Mg Tablet) 40 mg PO DAILY NATALIA Last Admin: 05/13/22 08:02 Dose: 40 mg Dextrose (Dextrose 50 % 25 Gm/50 Ml Syringe) 25 gm IVPUSH Q15M PRN; Protocol PRN Reason: per Hypoglycemia Standing Ord. Fenofibrate (Fenofibrate 160 Mg Tablet) 160 mg PO DAILY [facility] Last Admin: 05/13/22 08:51 Dose: 160 mg Glucose (Glucose Gel 15 Gm Gel..Gram.) 15 gm PO Q15M PRN; Protocol PRN Reason: per Hypoglycemia Standing Ord. Glyburide (Glyburide 5 Mg Tablet) 10 mg PO BID [facility] Last Admin: 05/13/22 08:51 Dose: 10 mg Hydromorphone HCl (Hydromorphone Hcl 1 Mg/Ml Syringe) 0.5 mg IVPUSH Q4H PRN; Protocol PRN Reason: Pain, Severe (Pain Scale 7-10) Last Admin: 05/13/22 08:01 Dose: 0.5 mg Lactated Ringer's (Lr) 1,000 mls @ 200 mls/hr IVCONT .Q5H [facility] Last Admin: 05/13/22 06:52 Dose: 200 mls/hr Insulin Human Lispro (Insulin Lispro 100 Unit/Ml 3 Ml Vial) 0.1 - 10 unit SUBCUT QIDACHS [facility]; Protocol Last Admin: 05/13/22 07:44 Dose: Not Given Lisinopril (Lisinopril 20 Mg Tablet) 20 mg PO DAILY [facility]; Protocol Last Admin: 05/13/22 08:02 Dose: 20 mg Metformin HCl (Metformin Hcl 1,000 Mg Tablet) 1,000 mg PO BID [facility] Ondansetron HCl (Ondansetron Hcl 4 Mg/2 Ml Vial) 4 mg IVPUSH Q8H PRN PRN Reason: Nausea and Vomiting Sodium Chloride (0.9 % Sodium Chloride Flush 3 Ml Syringe) 3 ml IVFLUSH QSHIFT [facility] Last Admin: 05/13/22 08:24 Dose: Not Given Home Medications Medication Instructions Recorded Confirmed Last Taken Type aspirin 81 mg tablet 81 mg PO DAILY 05/12/22 05/12/22 Unknown History atenolol 50 mg tablet 1 tab PO DAILY 05/12/22 05/12/22 Unknown History atorvastatin 40 mg tablet 1 tab PO DAILY 05/12/22 05/12/22 Unknown History dulaglutide 1.5 mg/0.5 mL 0.5 ml subcut QWEEK 05/12/22 05/12/22 Unknown History subcutaneous pen injector ([facility]) fenofibrate 160 mg tablet 1 tab PO DAILY 05/12/22 05/12/22 Unknown History glyburide 5 mg tablet 2 tab PO BID 05/12/22 05/12/22 Unknown History lisinopril 20 mg tablet 1 tab PO DAILY 05/12/22 05/12/22 Unknown History metformin 1,000 mg tablet 1 tab PO BID 05/12/22 05/12/22 Unknown History Physical Exam Vital Signs: Vital Signs: Last Vital Signs Temp 97.6 F 05/13/22 07:20 Pulse 63 05/13/22 07:20 Resp 15 05/13/22 07:20 BP 162/70 H 05/13/22 07:20 Pulse Ox 98 05/13/22 07:20 O2 Del Method 05/13/22 07:20 BMI result Body Mass Index 30.2 Const: Other: not toxic looking General: comfortable and no acute distress Orientation/consciousness: patient oriented x3 Neck: Neck: Yes no lymphadenopathy Resp: Auscultation: clear to auscultation bilaterally Cardio: Rhythm: regular rhythm GI: Palpation (GI): Soft to palpation, Tenderness to palpation present (GI) (epig area, right side of abdomen) and no guarding Neuro: General: patient oriented x3 Results Labs Result diagrams: 05/13/22 06:20 05/13/22 06:20 Labs: Abnormal lab results 05/12/22 05/12/22 05/12/22 Range/Units 16:12 16:12 22:31 WBC 12.7 H (4.8-10.8) X10*3/uL RBC (4.60-5.80) X10*6/uL Hgb (14.0-18.0) g/dl Hct (42.0-52.0) % Immature Gran % (Auto) (0.0-0.4) % Eos % (Auto) (0-4) % Abs Immat Gran (auto) (0.00-0.03) X10*3/uL Carbon Dioxide (22-29) mmol/L Anion Gap (12-20) POC Glucose (60-115) mg/dL Random Glucose 348 H (60-115) mg/dL Total Bilirubin 1.2 H (0.0-1.0) mg/dL Lipase 287 H (8-78) U/L 05/12/22 05/13/22 05/13/22 Range/Units 22:33 06:20 06:20 WBC (4.8-10.8) X10*3/uL RBC 4.47 L (4.60-5.80) X10*6/uL Hgb 13.2 L (14.0-18.0) g/dl Hct 39.2 L (42.0-52.0) % Immature Gran % (Auto) 0.8 H (0.0-0.4) % Eos % (Auto) 4.6 H (0-4) % Abs Immat Gran (auto) 0.07 H (0.00-0.03) X10*3/uL Carbon Dioxide 32 H (22-29) mmol/L Anion Gap 9 L (12-20) POC Glucose 336 H (60-115) mg/dL Random Glucose 228 H (60-115) mg/dL Total Bilirubin (0.0-1.0) mg/dL Lipase (8-78) U/L 05/13/22 Range/Units 07:19 WBC (4.8-10.8) X10*3/uL RBC (4.60-5.80) X10*6/uL Hgb (14.0-18.0) g/dl Hct (42.0-52.0) % Immature Gran % (Auto) (0.0-0.4) % Eos % (Auto) (0-4) % Abs Immat Gran (auto) (0.00-0.03) X10*3/uL Carbon Dioxide (22-29) mmol/L Anion Gap (12-20) POC Glucose 204 H (60-115) mg/dL Random Glucose (60-115) mg/dL Total Bilirubin (0.0-1.0) mg/dL Lipase (8-78) U/L Short CBC 05/12/22 05/13/22 Range/Units 16:12 06:20 WBC 12.7 H 9.0 (4.8-10.8) X10*3/uL Hgb 14.6 13.2 L (14.0-18.0) g/dl Hct 43.1 39.2 L (42.0-52.0) % Plt Count 219 173 (160-400) X10*3/uL BMP 05/12/22 05/13/22 16:12 06:20 Sodium 141 144 Potassium 4.4 4.2 Chloride 102 107 Carbon Dioxide 28 32 H BUN 13 12 Creatinine 1.03 0.82 Calcium 9.7 8.8 D Liver Function 05/12/22 Range/Units 16:12 Total Bilirubin 1.2 H (0.0-1.0) mg/dL Direct Bilirubin 0.5 (0.0-0.5) mg/dL AST 12 (5-37) U/L ALT 14 (0-40) U/L Alkaline Phosphatase 61 (39-117) U/L Albumin 4.4 (3.5-5.0) g/dL All other labs normal. Imaging Additional studies: Laboratory Results WBC 9.0 X10*3/uL (4.8-10.8) 05/13/22 06:20 RBC 4.47 X10*6/uL (4.60-5.80) L 05/13/22 06:20 Hgb 13.2 g/dl (14.0-18.0) L 05/13/22 06:20 Hct 39.2 % (42.0-52.0) L 05/13/22 06:20 MCV 87.7 fL (80.0-98.0) 05/13/22 06:20 MCH 29.5 pg (27.0-33.0) 05/13/22 06:20 MCHC 33.7 g/dl (31.0-36.0) 05/13/22 06:20 RDW 13.3 % (11.0-16.0) 05/13/22 06:20 Plt Count 173 X10*3/uL (160-400) 05/13/22 06:20 MPV 11.3 fL (9.4-12.4) 05/13/22 06:20 Immature Gran % (Auto) 0.8 % (0.0-0.4) H 05/13/22 06:20 Neut % (Auto) 60.1 % (45-73) 05/13/22 06:20 Lymph % (Auto) 26.7 % (20-40) 05/13/22 06:20 Jerauld % (Auto) 7.4 % (2-11) 05/13/22 06:20 Eos % (Auto) 4.6 % (0-4) H 05/13/22 06:20 Baso % (Auto) 0.4 % (0-2) 05/13/22 06:20 Lymph # (Auto) 2.4 X10*3/uL (1.2-4.9) 05/13/22 06:20 Jerauld # (Auto) 0.7 X10*3/uL (0.1-1.2) 05/13/22 06:20 Eos # (Auto) 0.4 X10*3/uL (0.0-0.4) 05/13/22 06:20 Baso # (Auto) 0.0 X10*3/uL (0.0-0.2) 05/13/22 06:20 Abs Immat Gran (auto) 0.07 X10*3/uL (0.00-0.03) H 05/13/22 06:20 Absolute Neuts (auto) 5.4 x10*3/uL (2.0-8.3) 05/13/22 06:20 Absolute Nucleated RBC 0.000 X10*3/uL (0.0-0.012) 05/13/22 06:20 Nucleated RBC % (auto) 0.0 /100WBC (0.0-0.2) 05/13/22 06:20 Sodium 144 mmol/L (135-145) 05/13/22 06:20 Potassium 4.2 mmol/L (3.3-5.1) 05/13/22 06:20 Chloride 107 mmol/L (96-108) 05/13/22 06:20 Carbon Dioxide 32 mmol/L (22-29) H 05/13/22 06:20 Anion Gap 9 (12-20) L 05/13/22 06:20 BUN 12 mg/dL (9-16) 05/13/22 06:20 Creatinine 0.82 mg/dL (0.5-1.4) 05/13/22 06:20 Estim Creat Clear Calc 106.5 05/13/22 06:20 Estimated GFR > 60 05/13/22 06:20 POC Glucose 204 mg/dL (60-115) H 05/13/22 07:19 Random Glucose 228 mg/dL (60-115) H 05/13/22 06:20 Estimat Average Glucose 166 mg/dL 05/13/22 06:20 Hemoglobin A1c % 7.4 % 05/13/22 06:20 Calcium 8.8 mg/dL (8.4-10.2) D 05/13/22 06:20 Total Bilirubin 1.2 mg/dL (0.0-1.0) H 05/12/22 16:12 Direct Bilirubin 0.5 mg/dL (0.0-0.5) 05/12/22 16:12 AST 12 U/L (5-37) 05/12/22 16:12 ALT 14 U/L (0-40) 05/12/22 16:12 Alkaline Phosphatase 61 U/L (39-117) 05/12/22 16:12 Troponin I High Sens < 3.5 ng/L (<3.5-35.0) 05/12/22 22:31 B-Natriuretic Peptide 21 pg/mL (<100) 05/12/22 16:12 Total Protein 6.6 g/dL (6.5-8.0) 05/12/22 16:12 Albumin 4.4 g/dL (3.5-5.0) 05/12/22 16:12 Triglycerides 113 mg/dL 05/13/22 06:20 Triglycerides Cancelled 05/13/22 06:20 Lipase 287 U/L (8-78) H 05/12/22 22:31 COVID-19 (ALDO) Negative (Negative) 05/13/22 04:10 COVID-19 Clin Com See Note 05/13/22 04:10 Impressions Abdomen Ultrasound 05/12/22 22:55 IMPRESSION: 1. Cholelithiasis. Gallbladder wall thickening and trace pericholecystic fluid with positive ultrasound Timmons's sign raising concern for an acute cholecystitis. HIDA scan may be helpful for further assessment. 2. Increased echogenicity of liver parenchyma consistent with fatty change. Abdomen/Pelvis CT 05/13/22 02:00 IMPRESSION: No acute findings identified in the abdomen/pelvis. Cholelithiasis. Hepatobiliary Scan Nuclear Medicine 05/13/22 10:15 IMPRESSION: Normal biliary scan. Visualization of the gallbladder is evidence of a patent cystic duct and strong evidence against the diagnosis of acute cholecystitis. The common bile duct is patent. Liver function appears normal. Assessment and Plan (1) Gallstones: Status: Acute He has ahd abdominal pain as above for over 1 week and describes significant weight loss for the past few months. His CT does not suggest acute cholecystitis, and is HIDA scan shows the cystic duct to be patent. I am uncertain as to the etiology of his weight loss although his pain may be due to resolving gallstone pancreatitis as his lipase is not that high. I would recommend a full GI workup because of his symptoms. He otherwise has a benign exam. A GI consult is still pending.
--- NOTE | 2022-05-13 09:54 | PC.NURSE ---
pt currently in nuc Reclutec for scan
[2022-05-13] MEDS: ondansetron HCL 4 MG/2 ML VIAL IVPUSH (12:36)
[2022-05-13] MEDS: 0.9 % Sodium Chloride Flush 3 ML SYRINGE IVFLUSH (17:37)
[2022-05-13] MEDS: Magnesium Hydrox/Alum Hydrox 30 ML ORAL.SUSP 15 ML PO (18:25)
[2022-05-13 19:15] LABS: Glucose, Whole Blood 156 mg/dL (60-115)
--- NOTE | 2022-05-13 21:00 | PC.NURSE ---
[id number] GIVEN TO JASWINDER MYLES
[2022-05-13] MEDS: metFORMIN HCl 1,000 MG TABLET 1000 MG PO (21:59)
[2022-05-14] MEDS: HYDROmorphone HCl 1 MG/ML SYRINGE IVPUSH (02:26)
[2022-05-14] MEDS: Lactated Ringers 1,000 ML 200 ML IVCONT ×2 (02:27→06:47)
[2022-05-14 03:12] VITALS: BP 132/60; PULSE 70; RESP 18; TEMP 36.7; O2SAT 99
[2022-05-14 06:22] LABS: Alanine Aminotransferase 8 U/L (0-40); Albumin Level 3.4 g/dL (3.5-5.0); Alkaline Phosphatase 46 U/L (39-117); Anion Gap 6 (12-20); Aspartate Amino Transferase 8 U/L (5-37); Bilirubin Direct 0.4 mg/dL (0.0-0.5); Bilirubin Total 0.7 mg/dL (0.0-1.0); Blood Urea Nitrogen 10 mg/dL (9-16); Calcium 8.6 mg/dL (8.4-10.2); Carbon Dioxide 35 mmol/L (22-29); Chloride 105 mmol/L (96-108); Creatinine Clr Calc Pharmacy 111.9; Estimated Glomerular Filt Rate > 60; Glucose Random 192 mg/dL (60-115); Lipase 99 U/L (8-78); Potassium 4.4 mmol/L (3.3-5.1); Sodium 142 mmol/L (135-145)
[2022-05-14 07:22] LABS: Glucose, Whole Blood 143 mg/dL (60-115)
[2022-05-14 08:00] VITALS: BP 155/74; PULSE 64; RESP 18; TEMP 36.6; O2SAT 96
[2022-05-14] MEDS: metFORMIN HCl 1,000 MG TABLET 1000 MG PO (09:21)
[2022-05-14] MEDS: Atorvastatin Calcium 40 MG TABLET PO (09:21)
[2022-05-14] MEDS: lisinopriL 20 MG TABLET PO (09:21)
[2022-05-14] MEDS: atenoloL 50 MG TABLET PO (09:21)
[2022-05-14] MEDS: glyBURIDE 5 MG TABLET 10 MG PO (09:21)
[2022-05-14] MEDS: 0.9 % Sodium Chloride Flush 3 ML SYRINGE IVFLUSH (09:21)
[2022-05-14] MEDS: Fenofibrate 160 MG TABLET PO (09:21)
[2022-05-14] MEDS: Milk of Magnesia 30 ML ORAL.SUSP PO (09:31)
[2022-05-14 09:56] LABS: Thyroid Stimulating Hormone 1.67 uIU/mL (0.32-4.0)
--- NOTE | 2022-05-14 11:28 | MHC.CM.PN ---
PT REPORTS HE LIVES AT HOME WITH FAMILY AND IS INDEPENDENT [facility] PT DENIES USE OF DME OR HOME SERVICES PT REPORTS HE IS COVID VACCINATED AND HAS HAD ONE BOOSTER PT DECLINES TO COMPLETE A HCP HE REPORTS HE WAS ACTIVE WITH DR BOOKER AT [facility], HOWEVER THAT MD LEFT AND THEY ASSIGNED HIM A NEW ONE. HE DOES NOT KNOW WHO THE NEW PCP WILL BE BUT SAYS IT WILL BE ACTIVE ON 05/30/22. PT IS AWARE HE WILL LIKELY DC HOME TODAY WITH NO SERVICES HE WILL DRIVE HIMSELF
[2022-05-14 11:46] LABS: Glucose, Whole Blood 225 mg/dL (60-115)
[2022-05-14 12:00] VITALS: BP 138/73; PULSE 57; RESP 18; TEMP 36.7; O2SAT 96
--- NOTE | 2022-05-14 12:19 | PM.DS ---
DS: Providers Provider Date of Service: 05/14/22 Date of admission: 05/13/22 01:00 Primary care physician: Unknown Physician Consults: 05/12/22 23:38 Consult to General Surgery Stat Consulting Provider: David Cook Reason for consultation: Cholecystitis 05/13/22 01:03 Consult to Gastroenterology Routine Consulting Provider: Marcus Leon Reason for consultation: acute pancreatitis Has provider been notified: No DS: Diagnosis Discharge Diagnosis (1) Gallstones: Status: Acute (2) Acute gallstone pancreatitis: Status: Acute DS: Summary Hospital Course Hospital Course: admission note HPI 61-year-old male with past medical history of hyperlipidemia, diabetes, hypertension presents to the hospital with for substernal/epigastric abdominal pain.? Patient reports his symptoms started 1 week ago, the pain is constant, radiating to the back, varying in severity, reaching 10/10 at times, resolving spontaneously, he reports that the pain with come in waves.? He almost feels like a squeezing right upper quadrant pain at times as well.? He reports unintentional 40 lb weight loss in 4 months.? He has nausea with no vomiting, has had diarrhea because he has been taking milk of magnesia thinking that would help.? He has had low oral intake as a result.? Denies any fever or chills, no palpitation, headache, no numbness weakness or tingling.? No urinary symptoms and no lower extremity edema.? Patient reports that he had a colonoscopy about a year ago that showed adenoma any was told that that was falling into pea, skipping 5 year. On arrival to the ED hemodynamically stable with no significant abnormal vitals Labs are significant for WBC count 12.7, lipase of 287, LFTs normal.? Abdominal ultrasound showed cholelithiasis, abdominal pelvic CT showed cholelithiasis with no evidence of acute pancreatitis Given that patient needs to have a criteria for acute pancreatitis he will be admitted for further management Hospital course The patient was admitted to the hospital for evaluation of epigastric pain. Abdominal images were negative for any acute findings but blood work was consistent with elevated lipase. Evaluated by surgical team as HIDA scan was done and came back negative for any possibility of cholecystitis who recommended an outpatient gallbladder removal for evidence of gallbladder stone and possible D.O. passing stone causing the pancreatitis. The patient improved significantly as pain improved and he was able to tolerate diet As lipase to trended down to 90. Reported waiting close. No acute abnormality found on CT abdomen. Will need outpatient evaluation follow-up by his PCP for this concern. Gastroenterology evaluated the patient and may consider outpatient upper endoscopy and possible MRI if his symptoms do not resolved To rule out any possibilities of pancreatic mass. start pantoprazole for possibility of stomach gastritis Low-fat, low-cholesterol diet for the time being To follow-up with in surgery for planned gallbladder removal within the next 2 weeks Can use Advil as needed for pain management Drink plenty of fluids Time Spent with Patient Time attestation: Total time spent providing and/or coordinating discharge services: Discharge coordination time: Greater than 30 minutes Quality: Safe Use of Opioids Does Pt have an Active Cancer Diagnosis on the Problem List?: No Quality: Stroke Does the patient have a stroke diagnosis?: No Physical Exam Vital Signs: Vital Signs: Last Vital Signs Temp 98.0 F 05/14/22 12:00 Pulse 57 05/14/22 12:00 Resp 18 05/14/22 12:00 BP 138/73 05/14/22 12:00 Pulse Ox 96 05/14/22 12:00 O2 Del Method 05/14/22 12:00 BMI result Body Mass Index 30.2 Const: Other: Constitutional : Alert, oriented, not in distress Neck : Normal inspection, Supple Cardiovascular : RRR, no JVP, no lower extremity edema Respiratory : fair bilateral air entry, no crackles, wheezes or rhonchi Gastrointestinal: soft, lax, Normal bowel sounds, Mild epigastric tenderness. No surgical signs. Skin : Warm, Dry Neurological : Alert & oriented x3, No focal deficit , CN 2-12 within normal DS: Data Data Completed and Pending Labs on day of discharge: Laboratory Results - last 24 hr 05/13/22 05/14/22 05/14/22 19:11 05:12 05:12 Sodium 142 Potassium 4.4 Chloride 105 Carbon Dioxide 35 H Anion Gap 6 L BUN 10 Creatinine 0.78 Estim Creat Clear Calc 111.9 Estimated GFR > 60 POC Glucose 156 H Random Glucose 192 H Calcium 8.6 Total Bilirubin 0.7 Cancelled Direct Bilirubin 0.4 Cancelled AST 8 Cancelled ALT 8 Cancelled Alkaline Phosphatase 46 D Cancelled Total Protein 5.0 L D Cancelled Albumin 3.4 L D Cancelled Lipase 99 H Cancelled TSH 1.67 05/14/22 05/14/22 07:13 11:22 Sodium Potassium Chloride Carbon Dioxide Anion Gap BUN Creatinine Estim Creat Clear Calc Estimated GFR POC Glucose 143 H 225 H Random Glucose Calcium Total Bilirubin Direct Bilirubin AST ALT Alkaline Phosphatase Total Protein Albumin Lipase TSH Imaging CT scan - abdomen: Radiologist's impression: ITS Impressions Abdomen Ultrasound 05/12/22 22:55 IMPRESSION: 1. Cholelithiasis. Gallbladder wall thickening and trace pericholecystic fluid with positive ultrasound Timmons's sign raising concern for an acute cholecystitis. HIDA scan may be helpful for further assessment. 2. Increased echogenicity of liver parenchyma consistent with fatty change. Abdomen/Pelvis CT 05/13/22 02:00 IMPRESSION: No acute findings identified in the abdomen/pelvis. Cholelithiasis. Hepatobiliary Scan Nuclear Medicine 05/13/22 10:15 IMPRESSION: Normal biliary scan. Visualization of the gallbladder is evidence of a patent cystic duct and strong evidence against the diagnosis of acute cholecystitis. The common bile duct is patent. Liver function appears normal. Discharge Plan Discharge Patient Disposition: Home, Self-Care Discharge Diagnosis: acute pancreatitis Referrals: Physician,Unknown J [Primary Care Provider] - 1 Week Discharge Medications: New pantoprazole 40 mg tablet,delayed release (DR/EC) 40 mg PO DAILY Qty: 30 2RF Continued atorvastatin 40 mg tablet 1 tab PO DAILY glyburide 5 mg tablet 2 tab PO BID lisinopril 20 mg tablet 1 tab PO DAILY metformin 1,000 mg tablet 1 tab PO BID aspirin 81 mg Tablet 81 mg PO DAILY atenolol 50 mg tablet 1 tab PO DAILY fenofibrate 160 mg tablet 1 tab PO DAILY Trulicity 1.5 mg/0.5 mL pen injector 0.5 ml subcut QWEEK Discharge Orders: Discharge Order (Routine); Ordered 05/14/22 Ordered By: Yamileth Chen Diet: Low fat, low cholesterol Activity on Discharge: As tolerated Stand Alone Forms: Patient Portal Discharge page Care Plan Goals: Read below Health Concerns: Read below Plan of Treatment: Read below Assessment: You were admitted to the hospital for evaluation of abdominal pain. Evaluated by abdominal images that did not show any clear acute findings. Blood work was suggestive of pancreas inflammation. Evaluated by surgical team who thought that was aggravated by a passing stone from your gallbladder suggesting and outpatient follow-up for gallbladder removal. Your pain improved with usage of IV fluids. start pantoprazole for possibility of stomach gastritis Low-fat, low-cholesterol diet for the time being To follow-up with in surgery for planned gallbladder removal within the next 2 weeks Can use Advil as needed for pain management Drink plenty of fluids
== END 2022-05-14 13:32 | disposition home or self-care (01) ==
LOC: HO.ED 23:46 → HO.EDOVER 05-13 01:05 → HO.S3 05-13 20:30
PROVIDERS: Internal Medicine Gastroenterology; Surgery; Admitting Provider Internal Medicine; Emergency Provider Emergency Medicine; PCP Internal Medicine; Visit Provider Student in an Organized Health Care Education/Training Program
DX: K80.20 Calculus of gallbladder without cholecystitis without obstruction (principal); K85.10 Biliary acute pancreatitis without necrosis or infection; E11.9 Type 2 diabetes mellitus without complications; I10 Essential (primary) hypertension; E78.5 Hyperlipidemia, unspecified; R63.4 Abnormal weight loss; Z20.822 Contact with and (suspected) exposure to COVID-19; Z68.30 Body mass index [BMI] 30.0-30.9, adult; Z79.82 Long term (current) use of aspirin; Z79.84 Long term (current) use of oral hypoglycemic drugs; Z79.899 Other long term (current) drug therapy
CPT/HCPCS: 36415; 74176; 76705; 78226; 80048; 80076; 82947; 83036; 83690; 83880; 84443; 84478; 84484; 85025; 85027; 87635; 93005; 96361; 96374; 96375; 99218; 99285; A9537; J1170; J1885; J2405; J2543

== ENCOUNTER → 2022-05-17 14:25 | Outpatient (BNVA) | payer OTHER, SELFPAY | PROVIDERS: PCP Internal Medicine; Visit Provider Surgery | DX: K85.10 Biliary acute pancreatitis without necrosis or infection (principal); K80.20 Calculus of gallbladder without cholecystitis without obstruction; E66.01 Morbid (severe) obesity due to excess calories; E11.9 Type 2 diabetes mellitus without complications; K42.9 Umbilical hernia without obstruction or gangrene | CPT/HCPCS: 99202 ==

== ENCOUNTER → 2022-05-26 09:44 | Day surgery (SDC) | payer OTHER, SELFPAY ==
--- NOTE | 2022-05-26 07:12 | W.PM.OPN ---
Operative Note Operative Note Date of Service: 05/26/22 Narrative: After discussion with Anesthesia, patient needs evaluation for hereditary idiopathic angioedema, which may be a factor in his presentation today.
--- NOTE | 2022-05-26 10:10 | MHC.SHP ---
Pre-Procedural Eval Section A Date of Service: 05/26/22 The patient is an INPATIENT: No The History & Physical has been completed within 30 days and I have reviewed it.: Yes Section B Chief Complaint: calculus of gallbladder Allergies: Allergies Allergy/AdvReac Type Severity Reaction Status Date / Time shellfish derived Allergy Rash Verified 05/26/22 09:59 Plan I have reviewed the history and physical and performed a pertinent physical examination on my patient. No changes have occurred unless specified. Subjective Subjective Date of Service: 05/26/22 Reason For Visit: calculus of gallbladder Healthcare Proxy: No Guardianship: No Medical Problems Affecting Mental Status: No Interim History: The patient reports a 15 year history of what started as shellfish allergy that he states started from scraping up scallops with his bare hands and resulted in bullae, desquamation of both palms. This is been stable but unpredictable a certain environmental allergies including certain soaps and polymers (gear shift handles) will sometimes cause return of the symptoms. The last episode began 2-3 days ago and his hands are currently healing. As noted, this is been occurring for 15 years and the patient has no other symptoms. He would like to proceed with cholecystectomy and notes that his family support at home will help with his recovery. He stated that when his hands are affected, he usually just asks for help when needed. Other than this, there is no significant change to his past medical history since he was in the office. Review of Systems bilateral palmar skin desquamation with recovery; no evidence of sepsis, infection. No restriction (as per pt) Medical Review of Systems: changed Review of Systems: as above
--- NOTE | 2022-05-26 10:14 | PC.NURSE ---
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 the palms of his hands blister and the skin falls off. He says that randomly it flares up, just on the palms of his hands. He states this current episode started 3 days ago and he's not sure what caused it. Patient educated to see pcp or supervisor ship maintenance services for further testing and verbalized understanding. Patient will call to reschedule once his hands are healed.
== END | disposition home or self-care (01) ==
PROVIDERS: PCP Internal Medicine; Visit Provider Surgery
DX: K80.20 Calculus of gallbladder without cholecystitis without obstruction (principal); Z53.09 Procedure and treatment not carried out because of other contraindication